=== PATIENT | female | born 1980 | race African-American/Black ===

== ENCOUNTER 2017-08-04 18:39 | Emergency (ER) | payer SELFPAY ==
[2017-08-04 19:44] LABS: #Basophils 0.1 thou/uL (0.0-0.2); #Lymphocytes 1.6 thou/uL (1.20-3.40); #Monocytes 0.3 thou/uL (0.11-0.59); #Neutrophils 5.9 thou/uL (1.40-6.50); %Basophils 0.9 % (0.0-1.0); %Eosinophils 0.1 % (0.0-10.0); %Lymphocytes 20.3 % (21.0-51.0); %Monocytes 3.7 % (0.0-10.0); Hematocrit 44.7 % (36.0-47.0); Mean Platelet Volume 8.3 fL (7.4-10.4); Red Blood Cell (RBC) Count 4.74 mill/uL (4.20-5.40); White Blood Cell (WBC) Count 7.9 thou/uL (4.8-10.8)
[2017-08-04 20:06] LABS: ALT (SGPT) 10 U/L (8-55); AST (SGOT) 17 U/L (5-34); Alkaline Phosphatase 62 U/L (40-150); Anion Gap 12 mmol/L (10-20); BUN (Urea Nitrogen) 11 mg/dL (7.0-18.7); Bilirubin, Total 0.4 mg/dL (0.2-1.2); Calc. Creatinine Clearance 0 mL/min (70-130); Calcium 9.9 mg/dL (7.8-10.44); Carbon Dioxide 27 mmol/L (22-29); Chloride 102 mmol/L (98-107); Estimated GFR-MDRD 72; Globulin 3.8 g/dL (2.4-3.5); Lipase 7 U/L (8-78)
[2017-08-05 03:40] LABS: Bilirubin Negative (Negative); Blood, Urine Trace (Negative); Glucose, Urine (Dipstick) Negative (Negative); Ketone, Urine 15 mg/dL (Negative); Nitrite Negative (Negative); Protein, Urine (Dipstick) Negative (Neg-Trace); Urobilinogen 0.2 mg/dL (0.2-1.0)
[2017-08-05 03:43] LABS: Bacteria/HPF None Seen HPF (None Seen); Hyaline Casts/LPF 7-10 HYALINE CAST LPF (0-3 Hyaline)
== END 2017-08-05 04:18 | disposition home or self-care (01) ==
LOC: ERS 18:39
DX: N39.0 Urinary tract infection, site not specified (principal); F32.9 Major depressive disorder, single episode, unspecified; I10 Essential (primary) hypertension; F17.210 Nicotine dependence, cigarettes, uncomplicated
CPT/HCPCS: 36415; 80053; 81003; 81015; 81025; 83690; 84703; 85025; 99284

== ENCOUNTER 2017-10-22 00:12 | Emergency (ER) | payer SELFPAY | END 2017-10-22 01:13 | disposition home or self-care (01) | LOC: ERS 00:12 | DX: F16.10 Hallucinogen abuse, uncomplicated (principal); Z71.6 Tobacco abuse counseling; I10 Essential (primary) hypertension; F32.9 Major depressive disorder, single episode, unspecified; F17.210 Nicotine dependence, cigarettes, uncomplicated | CPT/HCPCS: 99406 ==

== ENCOUNTER 2020-01-28 09:02 | Emergency (ER) | payer SELFPAY ==
[2020-01-28] MEDS ORDERED: Ondansetron PF 4 MG/2 ML Vial ONE (10:32)
[2020-01-28 10:38] LABS: #Basophils 0.1 thou/uL (0.0-0.2); #Lymphocytes 2.1 thou/uL (1.20-3.40); #Monocytes 0.3 thou/uL (0.11-0.59); #Neutrophils 3.3 thou/uL (1.40-6.50); %Basophils 1.6 % (0.0-1.0); %Eosinophils 0.5 % (0.0-10.0); %Lymphocytes 35.4 % (21.0-51.0); %Monocytes 4.8 % (0.0-10.0); %Neutrophils 57.7 % (42.0-75.0); Hemoglobin 14.9 g/dL (12.0-16.0); Mean Corpuscular HGB CONC 31.5 g/dL (32.0-36.0); Mean Corpuscular Hemoglobin 27.8 pg (27.0-31.0); Mean Corpuscular Volume 88.2 fL (78.0-98.0); Mean Platelet Volume 9.8 fL (7.4-10.4); Platelet Count 207 thou/uL (130-400); RBC Distribution Width 17.6 % (11.5-14.5); Red Blood Cell (RBC) Count 5.37 mill/uL (4.20-5.40); White Blood Cell (WBC) Count 5.8 thou/uL (4.8-10.8)
[2020-01-28 10:44] LABS: BHCG - Serum Negative (NEGATIVE); Pregs Control Background? CLEAR/WHITE (CLR/WHITE); Pregs Control Bar Appear? YES (CONTROL BAR)
[2020-01-28 10:57] LABS: ALT (SGPT) 10 U/L (8-55); AST (SGOT) 16 U/L (5-34); Albumin 4.5 g/dL (3.5-5.0); Alkaline Phosphatase 64 U/L (40-110); Anion Gap 13 mmol/L (10-20); BUN (Urea Nitrogen) 7 mg/dL (7.0-18.7); Bilirubin, Total 0.7 mg/dL (0.2-1.2); Calc. Creatinine Clearance 0 mL/min (70-130); Calcium 10.3 mg/dL (7.8-10.44); Carbon Dioxide 26 mmol/L (22-29); Chloride 99 mmol/L (98-107); Estimated GFR-MDRD 78; Glucose 94 mg/dL (70-105); Lipase 13 U/L (8-78); Potassium 3.3 mmol/L (3.5-5.1); Protein, Total 8.5 g/dL (6.0-8.3); Sodium 135 mmol/L (136-145)
[2020-01-28] MEDS ORDERED: Iopamidol-370 76% 500 ML 1 ML ONE (11:38)
--- NOTE | 2020-01-28 12:15 | CT ---
CT ABDOMEN AND PELVIS WITH IV CONTRAST: Date: 01/28/2020 INDICATION: Reason for exam states palpable mass in the lower abdomen. Also given for reason of exam is nausea, v omiting, and diarrhea. There are no comparison studies. FINDINGS: Lung bases are clear. Images through the lower chest reveal bilateral circumscribed breast masses. On the right, there is a mass in the inner right breast measuring 3.0 cm and on the left there is a circumscribed mass in the more inferior left breast also measuring 3.0 cm. The liver, spleen, and pancreas appear unremarkable. Numerous calcified gallstones are seen within a mildly contracted gallbladder. No evidence of biliary duct dilatation. Adrenal glands unremarkable. Kidneys unremarkable. Small bowel loops normal caliber. Colon unremarkable. Appendix appears normal. Images through the lower abdomen and pelvis reveal a large, somewhat pedunculated soft tissue mass wh ich exhibits some mild heterogeneity. In the coronal plane, this mass measures 20.0 cm craniocaudal x 20.0 cm width. On the sagittal images, this mass abuts the anterior uterus. There is no ascites or free fluid. Aorta is normal caliber. No other evidence of adenopathy. Osseous structures unremarkable. IMPRESSION: 1. A large, somewhat lobular-shaped soft tissue mass which appears to arise from the pelvis and exte nds into the lower and mid abdomen with dimensions given above measuring up to 20.0 cm. Sagittal imag es show this mass abuts the anterior uterus and it could represent a large, lobulated exophytic fibro id. Other etiologies such as ovarian neoplasm are not excluded, although the lack of ascites would ar guero against ovarian neoplasm. Recommend [employer] or surgical consultation for laparoscopy diagnosis. 2. Circumscribed 3.0 cm mass seen in each breast as described above. Recommend patient be scheduled for elective diagnostic mammogram. 3. Cholelithiasis POS: [id number]
== END 2020-01-28 12:55 | disposition home or self-care (01) ==
LOC: ERS 09:02
DX: R19.04 Left lower quadrant abdominal swelling, mass and lump (principal); R19.03 Right lower quadrant abdominal swelling, mass and lump; R11.2 Nausea with vomiting, unspecified; F17.210 Nicotine dependence, cigarettes, uncomplicated; I10 Essential (primary) hypertension
CPT/HCPCS: 74177; 80053; 83690; 84703; 85025; 96361; 96374; J2405; Q9967

== ENCOUNTER 2020-03-24 07:52 | Outpatient (CLI) | payer MEDICAID, OTHER ==
--- NOTE | 2020-03-24 08:40 | ULT ---
EXAM: Bilateral breast ultrasound PROVIDED CLINICAL HISTORY: Bilateral palpable abnormalities COMPARISON: Concurrently performed diagnostic mammogram FINDINGS: Limited sonographic interrogation of the right breast at the 4:00 position in the region of palpable concern demonstrates a circumscribed, oval, hypoechoic, smoothly marginated mass without posterior shadowing. This measures approximately 3.9 cm maximally. Limited sonographic interrogation of the left breast at 4:00 position in the region of palpable valentin rn demonstrates a circumscribed, oval, hypoechoic, smoothly marginated mass without posterior shadowing. This measures approximately 3.8 cm maximally. IMPRESSION: Bilateral breast masses corresponding to the areas of palpable concern, demonstrating sonographic fin dings compatible with fibroadenomas. BI-RADS 2 -- benign findings
--- NOTE | 2020-03-24 08:42 | MMO ---
Bilateral MAMMO Bilat Diag [facility]. CLINICAL HISTORY: Patient is 40 years old and is seen for diagnostic exam and palpable abnormality in both breasts. The patient has the following family history of breast cancer: mother, 40'S. The patient has no personal history of cancer. VIEWS: The views performed were: bilateral craniocaudal with tomosynthesis; bilateral mediolateral oblique with tomosynthesis; bilateral mediolateral with tomosynthesis; and bilateral exaggerated craniocaudal. FILMS COMPARED: The present examination has been compared to a prior imaging study performed at [facility] on 03/24/2020. This study has been interpreted with the assistance of computer-aided detection. MAMMOGRAM FINDINGS: There are scattered fibroglandular densities. Finding 1: There is an equal density, oval mass measuring 4 cm with circumscribed margins seen in the right breast at 4 o'clock. Sonographic findings are compatible with fibroadenoma. Finding 2: There is an equal density, oval mass measuring 4 cm with circumscribed margins seen in the left breast at 4 o'clock. Sonographic findings are compatible with fibroadenoma. There are no additional masses, suspicious calcifications, or areas of architectural distortion. IMPRESSION: THERE IS NO MAMMOGRAPHIC EVIDENCE OF MALIGNANCY. ANY DECISION TO BIOPSY SHOULD BE BASED ON CLINICAL ASSESSMENT. THE RESULTS OF THIS EXAM WERE SENT TO THE PATIENT. ACR BI-RADS Category 2 - Benign finding MAMMOGRAPHY NOTE: 1. A negative mammogram report should not delay a biopsy if a dominant of clinically suspicious mass is present. 2. Approximately 10% to 15% of breast cancers are not detected by mammography. 3. Adenosis and dense breasts may obscure an underlying neoplasm. Reported by: CAROL LUNA MD Electonically Signed: [id number]
== END 2020-03-24 07:53 | disposition home or self-care (01) ==
LOC: BICMAMMO 07:52
PROVIDERS: ATTEND Nurse Practitioner Women's Health
DX: N63.20 Unspecified lump in the left breast, unspecified quadrant (principal); N63.10 Unspecified lump in the right breast, unspecified quadrant
CPT/HCPCS: 77066; G0279

== ENCOUNTER 2023-06-15 02:24 | Emergency (ER) | payer SELFPAY ==
[2023-06-15] MEDS ORDERED: methylPREDNISolone Sod Succ/PF 125 MG/2 ML VIAL ONE (03:12)
[2023-06-15] MEDS ORDERED: Famotidine/PF 20 mg/2ml Vial ONE (03:12)
[2023-06-15] MEDS ORDERED: Ondansetron PF 4 MG/2 ML Vial ONE (03:12)
[2023-06-15] MEDS ORDERED: diphenhydrAMINE 25 MG CAP ONE (03:12)
[2023-06-15] MEDS ORDERED: diphenhydrAMINE 50 MG/ML VIAL ONE (03:13)
[2023-06-15] MEDS ORDERED: EPINEPHrine 1 MG/10 ML Abboject SYRINGE ONE (03:24)
[2023-06-15] MEDS ORDERED: EPINEPHrine 1 MG/ML AMP ONE (03:25)
== END 2023-06-15 06:29 | disposition home or self-care (01) ==
LOC: ERS 02:24
DX: T78.40XA Allergy, unspecified, initial encounter (principal); I10 Essential (primary) hypertension; E78.00 Pure hypercholesterolemia, unspecified
CPT/HCPCS: 96372; 96374; 96375; J0171; J1200; J2405; J2930; S0028

== ENCOUNTER 2024-01-05 10:18 | Emergency (ER) | payer OTHER ==
[2024-01-05] MEDS ORDERED: Ketorolac Tromethamine 30 MG (1 mL) VIAL ONE (12:01)
[2024-01-05] MEDS ORDERED: Ondansetron ODT 4 MG TAB ONE (12:02)
[2024-01-05 12:34] LABS: Hematocrit 36.3 % (36.0-47.0); Hemoglobin 11.6 g/dL (12.0-16.0); Mean Corpuscular Hemoglobin 22.7 pg (27.0-31.0); Mean Corpuscular Volume 71.2 fl (78.0-98.0); Mean Platelet Volume 9.5 fL (7.4-10.4); Platelet Count 307 10x3/uL (130-400); RBC Distribution Width 19.4 % (11.5-14.5)
[2024-01-05 12:49] LABS: Bilirubin Negative (Negative); Blood, Urine Negative (Negative); CAUTI Indications for Culture Pelvic or flank pain; Clarity Clear (Clear); Glucose, Urine (Dipstick) Normal (Negative); Ketone, Urine 80 mg/dL (Negative); Leukocyte 25 Leu/uL (Negative); Nitrite Negative (Negative); Protein, Urine (Dipstick) 10 mg/dL (Neg-Trace); RBC/HPF 0-3 HPF (0-3); Specific Gravity, Urine 1.017 (1.002-1.036); Urobilinogen Normal mg/dL (Less than 2); pH, Urine 6.5 (5.0-9.0)
[2024-01-05 13:02] LABS: ALT (SGPT) 11 U/L (8-55); AST (SGOT) 22 U/L (5-34); Albumin 4.5 g/dL (3.5-5.0); Alkaline Phosphatase 64 U/L (40-110); Anion Gap 16 mmol/L (10-20); BUN (Urea Nitrogen) 7 mg/dL (7.0-18.7); Calc. Creatinine Clearance 0 mL/min (70-130); Carbon Dioxide 22 mmol/L (22-29); Chloride 101 mmol/L (98-107); Estimated GFR 88; Globulin 4.2 g/dL (2.4-3.5); Glucose 93 mg/dL (70-105); Lipase 6 U/L (8-78); Potassium 3.8 mmol/L (3.5-5.1); Protein, Total 8.7 g/dL (6.0-8.3); Sodium 135 mmol/L (136-145)
[2024-01-05 13:05] LABS: Bilirubin, Total 0.5 mg/dL (0.2-1.2)
[2024-01-05 13:08] LABS: Anisocytosis SLIGHT = 6-15 cells HPF (0-5); Band 2 % (5-11); Lymphocytes 12 % (21-51); Microcytosis SLIGHT = 6-15 cells HPF (0-5); Monocytes 1 % (0-10); Neutrophil 83 % (42-75); Nucleated RBC (Manual Ct) 1 % (0); Platelet Adequacy Comment Platelets Normal; Poikilocytosis SLIGHT = 6-15 cells HPF (0-5); Polychromasia SLIGHT = 2-3 cells HPF (0-2); Reactive Lymphocytes 1 % (0-10); Target Cells MODERATE= 6-15 cells HPF (0-1)
[2024-01-05 13:33] LABS: Bacteria/HPF Rare-Few HPF (None Seen)
[2024-01-05 13:35] LABS: Urine Culture Reflex No No
[2024-01-05 13:36] LABS: Pregnancy Test - Urine (BHCG) Negative (Negative); Pregu Control Background? CLEAR/WHITE (CLR/WHITE); Pregu Control Bar Appear? YES (CONTROL BAR); Specific Gravity 1.017 (1.002-1.036)
== END 2024-01-05 14:53 | disposition home or self-care (01) ==
LOC: ERS 10:18
DX: R10.9 Unspecified abdominal pain (principal); D21.9 Benign neoplasm of connective and other soft tissue, unspecified; F17.210 Nicotine dependence, cigarettes, uncomplicated
CPT/HCPCS: 36415; 74176; 76705; 80053; 81001; 81025; 83690; 85025; 96372; J1885; Q0162